=== PATIENT | female | born 1950 | race Caucasian/White ===

== ENCOUNTER 2019-08-23 14:24 | Emergency (ER) | payer SELFPAY ==
[2019-08-23 14:48] VITALS: BP 144/78; PULSE 75; RESP 18; TEMP 37.4; O2SAT 97
--- NOTE | 2019-08-23 17:23 | PC.NURSE ---
Patient comes to the intake desk and states that she no longer wishes to be seen and is going to leave the ED. IV which was started by EMS was discontinued at this time. Patient informed that she may return to the ED at any time for care.
== END 2019-08-23 17:25 | disposition left against medical advice (07) ==
DX: Z53.21 Procedure and treatment not carried out due to patient leaving prior to being seen by health care provider (principal)
CPT/HCPCS: 99199